=== PATIENT | female | born 1950 | race Caucasian/White ===

== ENCOUNTER 2024-04-02 10:24 | Outpatient (CLI) | payer MEDICARE | END 2024-04-02 23:59 | disposition home or self-care (01) | LOC: MRI 10:24 | PROVIDERS: ATTEND Pediatrics Sports Medicine | DX: M47.816 Spondylosis without myelopathy or radiculopathy, lumbar region (principal); M51.37 Other intervertebral disc degeneration, lumbosacral region; M46.1 Sacroiliitis, not elsewhere classified; M53.3 Sacrococcygeal disorders, not elsewhere classified; M48.07 Spinal stenosis, lumbosacral region; M43.16 Spondylolisthesis, lumbar region; M41.86 Other forms of scoliosis, lumbar region; M25.551 Pain in right hip | CPT/HCPCS: 72148 ==